=== PATIENT | female | born 1975 | race Caucasian/White ===

== ENCOUNTER → 2022-02-19 | Day surgery (SDC) | payer OTHER ==
[~2022-02-19] MED LIST: IRON PO; LIDOCAINE HCL 2% LOCAL INJ 5 ML SDV VIAL INJ ONE; METOCLOPRAMIDE HCL 10 MG/2ML VIAL ONE; MIRALAX17 GM PO; NEXIUM40 MG PO; ONDANSETRON ODT8 MG PO; PROBIOTIC & AC1 EACH PO; PROPOFOL IV EMULSION 10 MG/ML 20 ML VIAL ONE; SYMAX PO; TUMS ULTRA400 MG PO
[2022-02-19 16:38] LABS: WBC,FECAL (FECAL LACTOFERRIN) NEGATIVE (NEGATIVE)
[2022-02-19 16:40] VITALS: BP 105/73
== END | disposition home or self-care (01) ==
LOC: OR 12:05
PROVIDERS: ATTEND Internal Medicine Gastroenterology
DX: K52.9 Noninfective gastroenteritis and colitis, unspecified (principal); K31.7 Polyp of stomach and duodenum; K29.70 Gastritis, unspecified, without bleeding; K20.90 Esophagitis, unspecified without bleeding; K22.89 Other specified disease of esophagus; K21.9 Gastro-esophageal reflux disease without esophagitis; K44.9 Diaphragmatic hernia without obstruction or gangrene; K62.89 Other specified diseases of anus and rectum; K64.8 Other hemorrhoids; Z88.1 Allergy status to other antibiotic agents; Z88.8 Allergy status to other drugs, medicaments and biological substances; Z86.2 Personal history of diseases of the blood and blood-forming organs and certain disorders involving the immune mechanism; Z86.16 Personal history of COVID-19
CPT/HCPCS: 43239; 45380; 81025; 83630; 83993; 87045; 87177; 87324; 87328; 87449; C9113; 45378; 87493; J2001; J2765